=== PATIENT | female | born 1950 | race Hispanic/Latino ===

== ENCOUNTER 2020-02-26 08:52 | Outpatient (CLI) | payer MEDICARE, BC ==
--- NOTE | 2020-02-26 14:07 | PET ---
PET W CT Skull to Mid Thigh History: Chronic lymphocytic leukemia of the cell type not having reached remission. Comparison: Abdomen pelvis CT August 27, 2019 Findings: PET CT from skull-mid thigh was performed after the intravenous administration of 11.1 mCi F-18 FDG. No FDG avid adenopathy above or below diaphragm. No cervical, mediastinal, retroperitoneal, nor ingu inal adenopathy. Scattered diverticular disease of the sigmoid colon. Fat-containing periumbilical hernia. Subtle increased radiotracer activity within the L5 incomplete burst fracture. Mild increased concavi ty inferior L1 endplate with FDG avidity. Calcified granuloma right lung base. Mosaic attenuation of the lungs. Calcified right paraesophageal lymph nodes. Impression: 1. No FDG avid adenopathy above or below the diaphragm. Deauville score: 1 2. Healing L5 and L1 fractures. 3. Mosaic attenuation of lungs can be seen with chronic small airway or small vessel disease.
== END 2020-02-26 08:53 | disposition home or self-care (01) ==
LOC: PET 08:52
PROVIDERS: ATTEND Internal Medicine Hematology & Oncology
DX: C91.10 Chronic lymphocytic leukemia of B-cell type not having achieved remission (principal); S32.019D Unspecified fracture of first lumbar vertebra, subsequent encounter for fracture with routine healing; S32.059D Unspecified fracture of fifth lumbar vertebra, subsequent encounter for fracture with routine healing
CPT/HCPCS: 78815; A9552

== ENCOUNTER 2023-06-12 14:01 | Outpatient (CLI) | payer MEDICARE, BC | END 2023-06-12 14:02 | disposition home or self-care (01) | LOC: SCSMRI 14:01 | PROVIDERS: ATTEND Family Medicine | DX: M47.22 Other spondylosis with radiculopathy, cervical region (principal); M48.02 Spinal stenosis, cervical region; M89.38 Hypertrophy of bone, other site; M25.78 Osteophyte, vertebrae | CPT/HCPCS: 72141 ==